=== PATIENT | female | born 1950 | race African-American/Black ===

== ENCOUNTER 2017-06-07 16:54 | Emergency (ER) | payer MEDICARE ==
[~2017-06-07 16:54] MED LIST: ASPI81TA82 PO; FOLI1 PO; TAB-TAB PO; TORS20TA PO; TRAM50TA PO; VENTAER INH; VITA100020 PO; VITA200017 PO; VITA500T10 PO
[2017-06-07 16:55] VITALS: BP 152/81; PULSE 82; RESP 20; TEMP 98.7; O2SAT 95
[2017-06-07] MEDS ORDERED: TORS20TA PO (17:29)
[2017-06-07] MEDS ORDERED: OTC VITAMINS (17:29)
[2017-06-07] MEDS ORDERED: OTC POTASSIUM (17:29)
--- NOTE | 2017-06-07 17:52 | PD ---
HPI Chief Complaint: Cold / Flu Symptoms Time Seen by Provider: 17:49 Travel History International Travel<30 days: No Contact w/Intl Traveler<30days: No Traveled to known affect area: No History of Present Illness HPI 67-year-old female with history of HTN and seasonal allergies presents to the ED for evaluation of 3 day history of sinus congestion, clear rhinorrhea, chills , malaise, nausea. She denies headache, dizziness, ear pain, sore throat, cough, shortness of breath, chest pain, abdominal pain, vomiting, dysuria. She treated with OTC medications with no improvement of symptoms. PFSH Past Medical History Hx Anticoagulant Therapy: Yes Arthritis: Yes Asthma: Yes Anxiety: No Depression: No Heart Rhythm Problems: No Cancer: Yes (RIGHT BREAST CANCER; NO STICKS OR BP RIGHT ARM ) Cardiovascular Problems: Yes (HTN) High Cholesterol: No Chemotherapy: Yes ( HX OF) Chest Pain: No Congestive Heart Failure: Yes COPD: No Cerebrovascular Accident: Yes (TIA) Diabetes: No Diminished Hearing: No Endocrine: No GERD: No Genitourinary: No Hepatitis: No Hiatal Hernia: No Hypertension: Yes Immune Disorder: No Kidney Stones: No Medical other: Yes (CELLULITIS RIGHT LEG AUG 2014) Musculoskeletal: Yes (ARTHRITIS, HANDS, KNEES & LEFT HIP ) Neurologic: Yes (HX MINI STROKE 2013) Psychiatric: No Reproductive: Yes (POST MENOPAUSAL BLEEDING) Respiratory: Yes (ASTHMA) Migraines: No Radiation Therapy: No Renal Failure: No Seizures: No Shingles: Yes Sickle Cell Disease: No Sleep Apnea: Yes Thyroid Disease: No Ulcer: No Menopausal: Yes Past Surgical History Abdominal Surgery: Yes AICD: No Arteriovenous Shunt: No Cardiac Surgery: No Cholecystectomy: Yes Ear Surgery: No Endocrine Surgery: No Eye Surgery: No Genitourinary Surgery: No Gynecologic Surgery: No Hysterectomy: Yes Insulin Pump: No Joint Replacement: No Mastectomy: Yes Oral Surgery: No Pacemaker: No Thoracic Surgery: Yes (RIGHT MASTECTOMY WITH 17 LYMPH NODES REMOVED) Other Surgery: Yes Social History Alcohol Use: No Tobacco Use: No Substance Use: No Allergies-Medications (Allergen,Severity, Reaction): Coded Allergies: Cultivated Oat Pollen (Verified Adverse Reaction, Mild, 12/27/15) RUNNY NOSE, CONGESTION Reported Meds & Prescriptions Reported Meds & Active Scripts Active Flonase Nasal [place] (Fluticasone Nasal [place]) 50 Mcg/Act [place] 100 Mcg EACH NARE BID 30 Days Claritin-D 24 HR (Loratadine-Pseudoephedrine 24 HR) 10-240 Mg Tab 1 Tab PO DAILY 30 Days Reported [Otc Potassium] DAILY [Otc Vitamins] DAILY Torsemide 20 Mg Tab 20 Mg PO DAILY Review of Systems Except as stated in HPI: all other systems reviewed are Neg Physical Exam Narrative GENERAL: Well-nourished, well-developed obese nontoxic-appearing AA female in no acute distress. SKIN: Warm and dry. HEAD: Normocephalic. Atraumatic. EYES: No scleral icterus. No injection or drainage. PERRLA. EOMI. ENT: Pearly balderas tympanic membranes bilaterally. Nasal mucosa is moist. Oropharynx without erythema, edema or exudate. No tenderness of the facial sinuses. NECK: Supple, trachea midline. No JVD or lymphadenopathy. CARDIOVASCULAR: Regular rate and rhythm without murmurs, gallops, or rubs. 2+ DP and radial pulses bilaterally. RESPIRATORY: Breath sounds clear and equal bilaterally. No accessory muscle use. GASTROINTESTINAL: Abdomen soft, non-tender, nondistended. + Bowel sounds MUSCULOSKELETAL: No cyanosis. Mild pitting edema to the knees bilaterally. Ambulatory with a normal gait. BACK: Nontender without obvious deformity. No CVA tenderness. Data Data Last Documented VS Vital Signs Date Time Temp Pulse Resp B/P Pulse Ox O2 Delivery O2 Flow Rate FiO2 06/07/17 16:55 98.7 82 20 152/81 95 Room Air Orders Influenzae A/B Antigen (06/07/17 17:47) MDM Medical Decision Making Medical Screen Exam Complete: Yes Emergency Medical Condition: Yes Differential Diagnosis Viral syndrome versus influenza versus seasonal allergies versus other Narrative Course 67-year-old female with history of HTN and seasonal allergies presents to the ED for evaluation of 3 day history of sinus congestion, clear rhinorrhea, chills , malaise, nausea. She denies headache, dizziness, ear pain, sore throat, cough, shortness of breath, chest pain, abdominal pain, vomiting, dysuria. She treated with OTC medications with no improvement of symptoms. Vitals reviewed. Physical exam reveals a nontoxic-appearing black female in no acute distress. ENT exam is unremarkable. Chest clear to auscultation bilaterally. Abdomen soft and nontender. Mild pitting edema bilaterally. Patient states that this is improved from her normal. Influenza swab negative. This is viral syndrome possibly with a component of seasonal allergies. Patient was prescribed Flonase 100 g intranasally daily and Claritin D 24 hours. She is instructed to treat symptomatically take the medications as prescribed, follow up with her primary care provider. She indicated understanding of instructions and is agreeable to the care plan. She is stable and discharged home. Diagnosis Primary Impression: Acute viral syndrome Additional Impression: Seasonal allergies Qualified Code: J30.2 - Acute seasonal allergic rhinitis, unspecified trigger Referrals: Primary Care Physician Patient Instructions: General Instructions, Viral Syndrome (ED) Additional Instructions: Rest, hydrate. Take medications as prescribed. Tylenol as directed on label as needed for continued headaches or fevers. Follow-up with the primary care provider. Return to the ED for any urgent or emergent medical condition. Med/Other Pt SpecificInfo: Prescription(s) given Scripts Fluticasone Nasal [place] (Flonase Nasal [place])50 Mcg/Act [id number] Mcg EACH NARE BID 30 Days Ref 0 Prov:Srinath Avalos MD 06/07/17 Loratadine-Pseudoephedrine 24 HR (Claritin-D 24 HR)10-240 Mg Tab1 Tab PO DAILY 30 Days Ref 0 Prov:Srinath Avalos MD 06/07/17 Disposition: 01 DISCHARGE HOME Condition: Stable Rosa Pardo Jun 07, 2017 17:52
[2017-06-07] MEDS ORDERED: LORA-400 PO (18:54)
[2017-06-07] MEDS ORDERED: FLUT1SPR5 EACH NARE (18:54)
== END 2017-06-07 19:32 | disposition home or self-care (01) ==
LOC: NEPD 16:54
DX: B34.9 Viral infection, unspecified (principal); J30.2 Other seasonal allergic rhinitis
CPT/HCPCS: 87804; 99283

== ENCOUNTER 2018-01-27 20:24 | Emergency (ER) | payer MEDICARE ==
[~2018-01-27] VITALS: Ht 152.4 cm; Wt 95.0 kg
[~2018-01-27 20:24] MED LIST changes: -ASPI81TA82 PO; +FLUT1SPR5 EACH NARE; -FOLI1 PO; +LORA-400 PO; +OTC POTASSIUM; +OTC VITAMINS; -TAB-TAB PO; -TRAM50TA PO; -VENTAER INH; -VITA100020 PO; -VITA200017 PO; -VITA500T10 PO
[2018-01-27 20:34] VITALS: BP 225/100; PULSE 99; RESP 20; TEMP 98.9; O2SAT 99
[2018-01-27] MEDS ORDERED: NORC5TAB PO (21:43)
[2018-01-27] MEDS ORDERED: AUGM875T3 PO (21:43)
[2018-01-27] MEDS ORDERED: [UNRECOGNIZED DRUG - CODE] LEFT EAR (21:43)
[2018-01-27] MEDS ORDERED: ACETAMINOPHEN/HYDROcodone 325 MG/5 MG TAB PO ONE (21:45)
[2018-01-27] MEDS ORDERED: AMOXICILLIN/CLAVULANATE K 875 MG TAB PO ONE (21:45)
--- NOTE | 2018-01-27 21:48 | PD ---
HPI Chief Complaint: ENT Complaint Time Seen by Provider: 21:35 Travel History International Travel<30 days: No Contact w/Intl Traveler<30days: No Traveled to known affect area: No History of Present Illness HPI 67-year-old black female presents to emergency Department with complaints of left ear pain today. She states that she had diarrhea last week but that resolved. She denies any recent cold symptoms. She states that she had very rapid development of left ear pain and pain around her left ear this evening. She denies sneezing or coughing. She denies any alleviating activity. Worse with palpation. No fever chills, runny nose, cough, congestion, vomiting, diarrhea or abdominal pain. No urinary symptoms. PFSH Past Medical History Hx Anticoagulant Therapy: Yes Arthritis: Yes Asthma: Yes Anxiety: No Depression: No Heart Rhythm Problems: No Cancer: Yes (RIGHT BREAST CANCER; NO STICKS OR BP RIGHT ARM ) Cardiovascular Problems: Yes (HTN) High Cholesterol: No Chemotherapy: Yes ( HX OF) Chest Pain: No Congestive Heart Failure: Yes COPD: No Cerebrovascular Accident: Yes (TIA) Diabetes: No Diminished Hearing: No Endocrine: No GERD: No Genitourinary: No Hepatitis: No Hiatal Hernia: No Hypertension: Yes Immune Disorder: No Kidney Stones: No Musculoskeletal: Yes (ARTHRITIS, HANDS, KNEES & LEFT HIP ) Neurologic: Yes (HX MINI STROKE 2013) Psychiatric: No Reproductive: Yes (POST MENOPAUSAL BLEEDING) Respiratory: Yes (ASTHMA) Migraines: No Radiation Therapy: No Renal Failure: No Seizures: No Shingles: Yes Sickle Cell Disease: No Sleep Apnea: Yes Thyroid Disease: No Ulcer: No Menopausal: Yes Past Surgical History Abdominal Surgery: Yes AICD: No Arteriovenous Shunt: No Cardiac Surgery: No Cholecystectomy: Yes Ear Surgery: No Endocrine Surgery: No Eye Surgery: No Genitourinary Surgery: No Gynecologic Surgery: No Hysterectomy: Yes Insulin Pump: No Joint Replacement: No Mastectomy: Yes Oral Surgery: No Pacemaker: No Thoracic Surgery: Yes (RIGHT MASTECTOMY WITH 17 LYMPH NODES REMOVED) Other Surgery: Yes Social History Alcohol Use: No Tobacco Use: No Substance Use: No Allergies-Medications (Allergen,Severity, Reaction): Coded Allergies: grass pollen (Unverified Adverse Reaction, Mild, 01/27/18) RUNNY NOSE, CONGESTION Reported Meds & Prescriptions Reported Meds & Active Scripts Active Tetracaine Opth Drops (Tetracaine HCl) 0.5 % Kesha 3 Drop LEFT EAR Q4-6H [place] (Hydrocodone-Acetaminophen) 5 Mg-325 Mg Tab 1 Tab PO Q8HR PRN Augmentin (Amoxicillin-Clavulanate) 875-125 Mg Tab 1 Tab PO BID 10 Days Flonase Nasal [place] (Fluticasone Nasal [place]) 50 Mcg/Act [place] 100 Mcg EACH NARE BID 30 Days Claritin-D 24 HR (Loratadine-Pseudoephedrine 24 HR) 10-240 Mg Tab 1 Tab PO DAILY 30 Days Reported [Otc Potassium] DAILY [Otc Vitamins] DAILY Torsemide 20 Mg Tab 20 Mg PO DAILY Review of Systems Except as stated in HPI: all other systems reviewed are Neg Physical Exam Narrative GENERAL: Well-developed, well-nourished in no acute distress. Nontoxic appearing. HEAD: Normocephalic, atraumatic. EYES: Pupils equal round and reactive. Extraocular motions intact. No scleral icterus. No injection or drainage. ENT: The right TMs clear without erythema. The left TM is distended erythematous and there is a large bullae on the TM The external auditory canals clear. Nose: clear . Posterior pharynx is pink and moist. No tonsillar edema or exudate. Uvula midline. Airway patent. NECK: Trachea midline.Supple, nontender, moves head freely. No central bony tenderness or spasm. CARDIOVASCULAR: Regular rate and rhythm without murmurs, gallops, or rubs. RESPIRATORY: Clear to auscultation. Breath sounds equal bilaterally. No wheezes , rales, or rhonchi. GASTROINTESTINAL: Abdomen soft, non-tender, nondistended. No hepato-splenomegaly , or palpable masses. No guarding. EXTREMITIES: No clubbing, cyanosis, or edema. No joint tenderness, effusion, or edema noted. BACK: Nontender without deformity or crepitance. No flank tenderness. Data Data Last Documented VS Vital Signs Date Time Temp Pulse Resp B/P (MAP) Pulse Ox O2 Delivery O2 Flow Rate FiO2 01/27/18 20:34 98.9 99 20 225/100 (141) 99 Room Air Orders Orders Amoxicil-Clavulanate (Augmentin) (01/27/18 21:45) Acetamin-Hydrocod 325-5 Mg ([place] 5-325 (01/27/18 21:45) Ed Discharge Order (01/27/18 21:43) [facility] Medical Decision Making Medical Screen Exam Complete: Yes Emergency Medical Condition: Yes Medical Record Reviewed: Yes Differential Diagnosis Differential diagnosis: TMs perforation, otitis externa, otitis media, mastoiditis Narrative Course The patient has been counseled on potential TM perforation/rupture. Patient given Augmentin 875 and 1 or go 5 mg by mouth. This is left otitis media Diagnosis Primary Impression: left otitis media Patient Instructions: General Instructions, Narcotic given in the ED Additional Instructions: Rest. Chewing gum. [id number] Nasonex. Zyrtec 10 mg daily. Augmentin, noro and tetracaine ear drops Follow-up with your doctor in next 2-3 days for recheck. Return to the ER for any problems. Med/Other Pt SpecificInfo: Prescription(s) given Scripts Tetracaine Opth Drops (Tetracaine Opth Drops) 0.5 % Kesha 3 DROP LEFT EAR Q4-6H, #1 BOTTLE 0 Refills Prov: Wero White MD 01/27/18 Hydrocodone-Acetaminophen ([place]) 5 Mg-325 Mg Tab 1 TAB PO Q8HR Y for PAIN, #6 TAB 0 Refills Prov: Wero White MD 01/27/18 Amoxicillin-Clavulanate (Augmentin) 875-125 Mg Tab 1 TAB PO BID for Infection for 10 Days, #20 TAB 0 Refills Prov: Wero White MD 01/27/18 Disposition: 01 DISCHARGE HOME Condition: Stable Bebeto Sosa Jan 27, 2018 21:48
== END 2018-01-27 22:23 | disposition home or self-care (01) ==
LOC: NEPK 20:24
DX: H66.92 Otitis media, unspecified, left ear (principal); M19.90 Unspecified osteoarthritis, unspecified site; J45.909 Unspecified asthma, uncomplicated; I11.0 Hypertensive heart disease with heart failure; I50.9 Heart failure, unspecified; Z85.3 Personal history of malignant neoplasm of breast; Z86.73 Personal history of transient ischemic attack (TIA), and cerebral infarction without residual deficits
CPT/HCPCS: 99283